=== PATIENT | female | born 1965 | race Caucasian/White ===

== ENCOUNTER 2017-02-03 11:17 | Emergency (ER) | payer OTHER ==
[2017-02-03] MEDS ORDERED: IPRATROPIUM/ALBUTEROL SULFATE 3 ML AMPUL.NEB NEB ONE (11:38)
--- NOTE | 2017-02-03 11:42 | ED Physician Documentation ---
Dyspnea - HISTORIAN Historian: patient - HPI Chief Complaint: Dyspnea Additional Information: exab copd inc sob cough prod sometimes. thinks worse after cleaning house yesterday. no cogs for 5 months takes duoneb which helps Onset: days ago (1-2 days) Duration: continues in ED Initiating Event: upper respiratory illness (inc cough). denies: out of meds Severity: moderate Exacerbated By: exertion, coughing Associated Symptoms: chest discomfort (posterior), productive cough - ROS CONST: no problems GI/: none NEURO/PSYCH: denies: headache MS/SKIN/LYMPH: none - PAST HX Lung Disease: COPD Surgeries/Procedures: cholecystectomy, hysterectomy Allergies/Adverse Reactions: Allergies Allergy/AdvReac Type Severity Reaction Status Date / Time codeine [Codeine] Allergy Intermediate Hives Verified 02/03/17 11:34 Home Medications: Ambulatory Orders Medication Instructions Recorded Clonazepam 1 mg PO TID 12/11/15 Prednisone 10 mg PO TID #30 tablet 02/03/17 - SOCIAL HX Smoking History: quit less than 1 year Alcohol Use: none Drug Use: marijuana - FAMILY HX Family History: no significant history - VITAL SIGNS Vital Signs: Vital Signs Temp Pulse Resp BP Pulse Ox 122/74 12/11/15 20:37 - REVIEWED ASSESSMENTS Nursing Assessment Reviewed: Yes Vitals Reviewed: Yes ED Results Lab/Radiology - Radiology Radiology Impressions: copd - no acute disease seen on cxr - Orders Orders: ED Orders Category Date Time Status CHEST P.A.&LAT 2 VIEWS [RAD] Stat Exams 02/03/17 Ordered CBC/PLATELET/DIFF Routine Lab 02/03/17 Ordered CMP Routine Lab 02/03/17 Ordered Ipratropium/Albuterol Sulfate [Duoneb] Med 02/03/17 11:38 Once 3 ml NEB NOW ONE EKG WITH COMPARISON Stat Ther 02/03/17 Ordered Dyspnea Physical Exam - EXAM General Appearance: moderate distress EENT: eye inspection normal Neck: nml inspection. No: lymphadenopathy Respiratory: speaks full sentences, wheezes, rales, rhonchi (vianey posterior - fairly clear anterior auscultation) CVS: reg. rate & rhythm Abdomen: non-tender Skin: color nml, no rash. No: cyanosis, diaphoresis, pallor, ecchymosis Extremities: non-tender Neuro/Psych: oriented x3, motor nml, sensation nml Discharge Clincal Impression: copd-acute exaberation Prescriptions: Prednisone 10 mg PO TID #30 tablet Referrals: David Martinez [Primary Care Provider] - 2 Days Comments: follow w/pred Condition: Good Disposition: 01 HOME, SELF-CARE Decision to Admit: NO Decision Time: 12:25
[2017-02-03 11:52] LABS: BASOPHILS % 1.1 (0.0-1.5); EOSINOPHILS % 2.5 % (0.0-6.8); MEAN CORPUSCULAR HEMOGLOBIN 29.9 pg (28.0-34.0); MEAN CORPUSCULAR VOLUME 89.9 fl (80.0-100.0); MONOCYTES % 6.2 % (0.0-11.0); NEUTROPHILS # 2.6 # k/uL (1.4-7.7)
[2017-02-03 12:03] LABS: eGFR (African) > 60; eGFR (Non-African) > 60
[2017-02-03] MEDS ORDERED: methylPREDNISolone SOD SUCC 125 MG/2 ML VIAL IVP ONE (12:22)
[2017-02-03 12:54] VITALS: BP 118/79
--- NOTE | 2017-02-03 15:02 | Diagnostic Imaging Report ---
AUGUSTUS BRYANT [facility] [address] [facility].[address] [address] Report Submission Date: Feb 03, 2017 12:07:41 PM CDT Patient Study Name: KARAN DELACRUZ Date: Feb 03, 2017 11:49:39 AM CDT Modality Type: CR Gender: F Description: CHEST : 63 Institution: [facility] Physician: AUGUSTUS BRYANT Examination: PA and lateral chest. History: Evaluate lung sun. Comparison exams: None provided Findings: PA lateral chest demonstrate a normal cardiac and mediastinal silhouette. No focal infiltrate. Apical emphysematous changes and bulla. No blunting of the costophrenic margins. Osseous structures are appropriate for age. Impression: Emphysematous changes and bulla. No acute pulmonary process. Electronically signed on Feb 03, 2017 12:07:41 PM CDT by: Neno ROLDAN
== END 2017-02-03 12:50 | disposition home or self-care (01) ==
LOC: ED 11:17
DX: J44.1 Chronic obstructive pulmonary disease with (acute) exacerbation (principal)
CPT/HCPCS: 71020; 80053; 85025; J2930; 96372; 99283; S1016

== ENCOUNTER 2017-09-13 09:02 | Emergency (ER) | payer OTHER ==
--- NOTE | 2017-09-13 09:19 | ED Physician Documentation ---
General Adult - HISTORIAN Historian: patient - HPI Chief Complaint: Nausea,Vomiting,Diarrhea Additional Information: 52yo white female who has a one week history of feeling nausea an dizziness. Saw a physician about 2 weeks ago and then was felt to be dehydrated and advised to drink more fluids. Feels that her nausea is realted to her being dehydrated. Has not been working in the heat. Has had some loose BMs. Has been vomiting all yesterday AM. Has not been able to take in fluids very much. Has vomited again today several times. Has been dry heaves. No blood note. No fever ro chills noted. Onset: days ago Timing: still present - ROS CONST: no problems. denies: fever, chills - PAST HX Past History: COPD, other (depression, anxiety, allergic rhinnitis) Surgeries/Procedures: , cholecystectomy Allergies/Adverse Reactions: Allergies Allergy/AdvReac Type Severity Reaction Status Date / Time codeine [Codeine] Allergy Intermediate Hives Verified 02/03/17 11:34 sertraline [From Zoloft] Allergy Verified 09/13/17 09:20 Home Medications: Ambulatory Orders Medication Instructions Recorded Budesonide/Formoterol Fumarate 2 puff INH BID 09/13/17 [Symbicort 160-4.5 Mcg Inhaler] Ondansetron HCl Rapdis [Zofran Odt] 4 mg PO Q8 #10 tab 09/13/17 PARoxetine HCL [Paxil] 1 tab PO DAILY 09/13/17 - SOCIAL HX Smoking History: quit less than 1 year Alcohol Use: none Drug Use: marijuana - FAMILY HX Family History: No - VITAL SIGNS Vital Signs: Vital Signs Temp Pulse Resp BP Pulse Ox 118/79 02/03/17 12:50 - REVIEWED ASSESSMENTS Nursing Assessment Reviewed: Yes Vitals Reviewed: Yes General Adult Physical Exam - PHYSICAL EXAM GENERAL APPEARANCE: mild distress EENT: eye inspection normal, ENT inspection normal, pharynx normal, no signs of dehydration NECK: normal inspection, thyroid normal, supple. No: lymphadenopathy, stiff neck RESPIRATORY: no resp distress, chest non-tender, breath sounds normal. No: wheezes, rales, rhonchi CVS: reg rate & rhythm, heart sounds normal, equal pulses, no murmur ABDOMEN: soft, no organomegaly, normal bowel sounds, no abdominal bruit, no distension, non-tender BACK: normal inspection SKIN: warm/dry, normal color NEURO: oriented X3, CN's nml as tested, mood/affect nml, cognition normal Discharge Clincal Impression: Nausea Referrals: David Martinez [Primary Care Provider] - 2 Days Additional Instructions: Take Zofran as needed for nausea. Make an appointment with your primary care provider that you are going to use to determine what medications to take for your anxiety, and what else needs to be done to look at your nausea. Try ot get some exercise to help with your anxiety issues also. Condition: Stable Disposition: 01 HOME, SELF-CARE Decision to Admit: NO Date of Decison to Admit: 09/13/17 Decision Time: 11:27
[2017-09-13 09:26] VITALS: BP 124/59
[2017-09-13] MEDS ORDERED: 0.9 % SODIUM CHLORIDE 1,000 ML IV ONE (09:29)
[2017-09-13] MEDS: 0.9 % SODIUM CHLORIDE 1,000 ML IV SCH (09:41)
[2017-09-13 09:47] LABS: APPEARANCE,URINE CLEAR (CLEAR); COLOR,URINE YELLOW (YELLOW); OCCULT BLOOD,URINE TRACE-LYSED (NEGATIVE); UROBILINOGEN URINE 0.2 Eu (0.2-1.0)
[2017-09-13 09:50] LABS: BASOPHILS % 0.6 (0.0-1.5); EOSINOPHILS % 1.3 % (0.0-6.8); MEAN CORPUSCULAR HEMOGLOBIN 29.6 pg (28.0-34.0); MEAN CORPUSCULAR VOLUME 89.1 fl (80.0-100.0); MONOCYTES % 3.6 % (0.0-11.0); NEUTROPHILS # 6.1 # k/uL (1.4-7.7)
[2017-09-13 10:05] LABS: eGFR (African) > 60; eGFR (Non-African) > 60
[2017-09-13] MEDS: ONDANSETRON HCL/PF 4 MG/ 2ML VIAL IVP ONE (10:30)
[2017-09-13] MEDS: ONDANSETRON HCL/PF 4 MG/ 2ML VIAL ONE (11:34)
--- NOTE | 2017-09-13 17:47 | Diagnostic Imaging Report ---
MARIAA RUSSO [facility] [address] [facility] [address] [address] Report Submission Date: Sep 13, 2017 10:33:22 AM CDT Patient Study Name: KARAN DELACRUZ Date: Sep 13, 2017 9:58:55 AM CDT Modality Type: DX Gender: F Description: ABDOMEN : 63 Institution: [facility] Physician: MARIAA RUSSO Examination: Obstruction series History: N/V FOR 2 TO 7 DAYS (Hx) Findings: 4 views obtained of the chest and abdomen. No abnormal dilation of the large or small bowel. Air and stool throughout the large bowel. No suspicious calcification projecting over the renal fossa or the lower pelvic region. Right upper quadrant surgical clips. Belly button ring. Osseous structures are appropriate for age. Lung base parenchymal scarring. Hyperinflation. Apical emphysematous changes. Impression: No obstruction. Emphysematous changes. No suspicious calcifications by plain film sensitivity. Electronically signed on Sep 13, 2017 10:33:22 AM CDT by: Neno ROLDAN
== END 2017-09-13 11:41 | disposition home or self-care (01) ==
LOC: ED 09:02
DX: R11.0 Nausea (principal)
CPT/HCPCS: 74022; 80053; 81002; 83690; 85025; J2405; J7030; 96365; S1016